=== PATIENT | female | born 1975 | race Caucasian/White ===

== ENCOUNTER 2016-11-01 12:09 | Emergency (ER) | payer MEDICAID ==
[~2016-11-01] VITALS: Ht 157.5 cm; Wt 89.0 kg
[~2016-11-01 12:09] MED LIST: CEPH250C PO; VIC PO
[2016-11-01 12:11] VITALS: Ht 157.5 cm; Wt 89.0 kg
[2016-11-01] MEDS ORDERED: KETOROLAC 30 MG INJ IM STA (13:53)
--- NOTE | 2016-11-01 14:29 | RADRPT ---
PROCEDURE: XR Left Shoulder CLINICAL INDICATION: Pain TECHNIQUE: AP internal and external rotation views and a Y-view were submitted. COMPARISON: None FINDINGS: Osseous structures: appear well mineralized and intact with no fracture or destructive process iden tified. Joint spaces: The glenohumeral joint appears unremarkable. The left AC joint appears unremarkable. Soft tissues: appear unremarkable. IMPRESSION: Unremarkable left shoulder. Physician Gerda Date Time Electronically viewed and signed by Lorena Franklin Physician on 11/01/2016 14:29 /
--- NOTE | 2016-11-01 14:30 | RADRPT ---
PROCEDURE: XR Chest. CLINICAL INDICATION: chest pain TECHNIQUE: Single frontal view of the chest was obtained COMPARISON: None FINDINGS: The heart and mediastinum are within normal limits. The lungs are clear. There is elevation of the right diaphragm. There is no pleural effusion or pneumothorax. RPTAT: AA IMPRESSION: No acute disease. .Wilfrid Quesada MD, MD Date Time Electronically viewed and signed by .Wilfrid Quesada MD, on 11/01/2016 14:30 .S/
[2016-11-01] MEDS ORDERED: NAPR-260 PO (15:07)
--- NOTE | 2016-11-01 15:32 | ERD ---
ER Documentation Chief Complaint Date/Time DATE: 11/01/16 TIME: 15:28 Chief Complaint left arm pain x 3 days HPI Patient is a 41-year-old female here with daughter who presents to the ED with left-sided chest wall pain left arm pain, left neck pain, left shoulder pain and back pain 1 year. 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 She states that the pain came on but she ignored it and continued working however is gotten worse specifically in the last 3 days. She denies chest pain or cough or shortness of breath. Denies headache or dizziness. Denies leg pain or leg swelling. She has not been taking ibuprofen and Motrin which has helped with her symptoms but she still has the pain. She denies any new onset trauma or falls. No other complaints. ROS All systems reviewed and are negative except as per history of present illness. Medications Home Meds Active Scripts Naproxen* (Naprosyn*) 500 Mg Tablet, 500 MG PO BID Y for PAIN AND/OR INFLAMMATION, #30 TAB Prov:SAMANTA SRIVASTAVA PA-C 11/01/16 Reported Medications Cephalexin* (Cephalexin*) 250 Mg Capsule, 500 MG PO BID 08/18/11 Acetaminophen/Hydrocodone (Vicodin) 1 Tab Tab, 1 TAB PO QID 08/18/11 Allergies Allergies: Coded Allergies: No Known Drug Allergies (Verified Allergy, 08/18/11) PMhx/Soc History of Surgery: No Anesthesia Reaction: No Hx Neurological Disorder: No Hx Respiratory Disorders: No Hx Cardiac Disorders: No Hx Psychiatric Problems: No Hx Miscellaneous Medical Probl: No Hx Alcohol Use: No Hx Substance Use: No Hx Tobacco Use: No Smoking Status: Never smoker FmHx Family History: No coronary disease, No diabetes, No other Physical Exam Vitals Vital Signs Date Time Temp Pulse Resp B/P Pulse Ox O2 Delivery O2 Flow Rate FiO2 11/01/16 12:11 98.1 89 18 135/64 99 Physical Exam GENERAL: Well-developed, well-nourished female. Appears in no acute distress. HEAD: Normocephalic, atraumatic. EYES: Pupils are equally reactive bilaterally. EOMs grossly intact. No conjunctival erythema. ENT: Moist mucous membranes. No uvula deviation. No kissing tonsils. No exudates. NECK: Supple. No lymphadenopathy or thyromegaly. No meningismus. negative kernig. negative brudinski. LUNG: Clear to auscultation bilaterally. No rhonchi, wheezing, rales or coarse breath sounds. HEART: Regular rate and rhythm. No murmurs, rubs or gallops. extreme tenderness to touch of left chest wall, left breast, left shoulder and left back. minimal rom. pulses intact. radius, ulnar, median nerve intact. no stepoffs or deformities.no swelling or erythema. BACK: No midline tenderness. Extremities: Equal pulses bilaterally. No peripheral clubbing, cyanosis or edema. No unilateral leg swelling. NEUROLOGIC: Alert and oriented. Moving all four extremities. 5/5 strength in all extremities. Normal speech. Steady gait. Cranial nerves II through XII intact. SKIN: Normal color. Warm and dry. No rashes or lesions. Capillary refill < 2 seconds Results 24 hrs Current Medications Medications (Trade) Dose Ordered Sig/Katelyn Route PRN Reason Start Time Stop Time Status Last Admin Dose Admin Ketorolac Tromethamine (Toradol) 30 mg ONCE STAT IM 11/01/16 13:53 11/01/16 13:55 DC 11/01/16 14:08 Procedures/MDM ER COURSE: I kept the patient and/or family informed of laboratory and diagnostic imaging results throughout the emergency room course. MEDICAL DECISION MAKING: This is a 41-year-old female who presents with shoulder, left-sided chest wall pain and back pain on and off 1 year. Vital signs were reviewed. Patient is afebrile. Patient is not hypoxic. She is not toxic or ill-appearing. Patient' s symptoms are chronic in etiology. Likely muscle strain versus sprain versus nerve injury. X-rays of by radiologist unremarkable for fracture dislocation. I have low suspicion for cardiac disease. Patient denies chest pain or shortness of breath. Patient has tenderness on examination. Symptoms have been going on for 1 year. No family history of heart disease. Low suspicion for dislocation, fracture, septic joint, compartment syndrome, osteomyelitis, cellulitis, avascular necrosis, neurological injury, vascular injury, tendon laceration. Low suspicion for ACS, PE, AAA, dissection, DVT DISCHARGE: At this time, patient is stable for discharge and outpatient management with no new complaints during the ER course. Patient was sent home with Yahaira and copy of imaging report and to follow-up with primary care provider. Patient will be discharged home with instructions to recheck for new or worsening symptoms such as fever, nausea, weakness, LOC and to follow up with primary care in the next 1-2 days. Patient was advised to return to the ER for any new or worsening symptoms. Plan was discussed and patient and/or family understands and agrees. Home instructions were given. Departure Diagnosis: Primary Impression: Chest wall pain Additional Impression: Shoulder pain, left Chronicity: chronic Qualified Code: M25.512 - Chronic left shoulder pain Condition: Stable Patient Instructions: Chest Wall Pain, Costochondritis, Chest Wall Strain, Shoulder Pain (Uncertain Cause) Additional Instructions: Llame al doctor MAANA y amanda gerardo LEE PARA DENTRO DE 1-2 GRACIA.Dgale a la secretaria que nosotros le instruimos hacer esta lee.Avise o llame si naidu condicin se empeora antes de la lee. Regresa aqui si peor o no mejor. SAMANTA SRIVASTAVA PA-C Nov 01, 2016 15:32
[2016-11-01 15:56] VITALS: BP 122/69; PULSE 99; RESP 17; TEMP 98.3
== END 2016-11-01 15:57 | disposition home or self-care (01) ==
LOC: FTE 12:09
DX: R07.89 Other chest pain (principal); M25.512 Pain in left shoulder
CPT/HCPCS: 71010; 73030; 96372; J1885; Z7502

== ENCOUNTER → 2018-09-03 | Emergency (ER) | payer MEDICAID ==
[~2018-09-03] VITALS: Ht 154.9 cm; Wt 100.0 kg
[~2018-09-03] MED LIST changes: +NAPR-985 PO; +ONDANSETRON 4 MG INJ IV STA; +SOD CHLORIDE 0.9% 1,000 ML IV STA
[2018-09-03 03:57] VITALS: Ht 154.9 cm; Wt 100.0 kg
--- NOTE | 2018-09-03 04:39 | ERD ---
ER Documentation Chief Complaint Chief Complaint FAMILY BROUGHT IN. ETOH AT HOME. INSULIN-DEPENDENT DIABETES HPI This is a 43-year-old woman with a history of diabetes brought in by friends and family members for drinking too much alcohol, it seems she was drinking tequila all night at her daughter's birthday libertarian. She was extremely lethargic and difficult to arouse, family member stated she felt dizzy and friends got worried and brought her here for evaluation. She had no episodes of vomiting, no complaints of chest pain or shortness of breath, no seizure activity. ROS All systems reviewed and are negative except as per history of present illness. Medications Home Meds Active Scripts Naproxen* (Naprosyn*) 500 Mg Tablet, 500 MG PO BID PRN for PAIN AND/OR INFLAMMATION, #30 TAB Prov:SAMANTA SRIVASTAVA PA-C 11/01/16 Reported Medications Cephalexin* (Cephalexin*) 250 Mg Capsule, 500 MG PO BID 08/18/11 Acetaminophen/Hydrocodone (Vicodin) 1 Tab Tab, 1 TAB PO QID 08/18/11 Allergies Allergies: Coded Allergies: No Known Drug Allergies (Verified Allergy, 08/18/11) PMhx/Soc Diabetes mellitus Medical and Surgical Hx: pt denies Surgical Hx History of Surgery: No Anesthesia Reaction: No Hx Neurological Disorder: No Hx Respiratory Disorders: No Hx Cardiac Disorders: No Hx Psychiatric Problems: No Hx Miscellaneous Medical Probl: No Hx Alcohol Use: Yes Hx Substance Use: No Hx Tobacco Use: No Smoking Status: Heavy tobacco smoker FmHx Family History: diabetes Physical Exam Vitals Vital Signs Date Temp Pulse Resp B/P (MAP) Pulse Ox O2 O2 Flow FiO2 Time Delivery Rate 09/03/18 100 110/56 100 Nasal 4.0 04:09 (74) Cannula 09/03/18 97.6 100 18 110/56 100 03:57 (74) Physical Exam GENERAL: Well-developed, well-nourished, well-hydrated, appears intoxicated, afebrile HEENT: Moist mucous membranes, pink conjunctiva, no cervical spine tenderness or step-off deformities, no goiter, no jaundice or icterus, extraocular movements intact without pain. No submandibular induration, and no pharyngeal erythema NEURO: Eyes closed, moving all extremities, no focal deficits or facial asymmetry, appears intoxicated, pupils equal round reactive to light CARDIAC: Tachycardic and regular, no murmurs rubs or gallops LUNGS: Clear bilaterally no wheezing crackles or stridor ABDOMEN: Soft nontender, no guarding, no rigidity, no rebound, no psoas sign no obturator sign. Normoactive bowel sounds SKIN: Warm and dry to touch, no abrasions, contusions, or hematomas, no lacerations, no ecchymosis, no target lesions, and without ulcers EXTREMITIES: No clubbing cyanosis or edema, calves are bilaterally symmetrical, no Homans sign, no popliteal cord sign. Distal pulses equal and bilateral PSYCH: Appears anxious, agitated Result Diagram: 09/03/18 0303 09/03/18 0303 Results 24 hrs Laboratory Tests Test 09/03/18 03:03 09/03/18 03:57 White Blood Count 8.9 10^3/ul Red Blood Count 5.25 10^6/ul Hemoglobin 15.2 g/dl Hematocrit 43.8 % Mean Corpuscular Volume 83.4 fl Mean Corpuscular Hemoglobin 29.0 pg Mean Corpuscular Hemoglobin Concent 34.7 g/dl Red Cell Distribution Width 11.9 % Platelet Count 393 10^3/UL Mean Platelet Volume 9.9 fl Immature Granulocytes % 0.200 % Neutrophils % 65.9 % Lymphocytes % 27.6 % Monocytes % 5.9 % Eosinophils % 0.2 % Basophils % 0.2 % Nucleated Red Blood Cells % 0.0 /100WBC Immature Granulocytes # 0.020 10^3/ul Neutrophils # 5.9 10^3/ul Lymphocytes # 2.5 10^3/ul Monocytes # 0.5 10^3/ul Eosinophils # 0.0 10^3/ul Basophils # 0.0 10^3/ul Nucleated Red Blood Cells # 0.0 10^3/ul Sodium Level 141 mmol/L Potassium Level 3.9 mmol/L Chloride Level 104 mmol/L Carbon Dioxide Level 20 mmol/L Anion Gap 17 Blood Urea Nitrogen 13 mg/dl Creatinine 0.33 mg/dl Est Glomerular Filtrat Rate mL/min > 60 mL/min Glucose Level 257 mg/dl Calcium Level 9.2 mg/dl Total Bilirubin 0.6 mg/dl Direct Bilirubin 0.00 mg/dl Indirect Bilirubin 0.6 mg/dl Aspartate Amino Transf (AST/SGOT) 38 IU/L Alanine Aminotransferase (ALT/SGPT) 37 IU/L Alkaline Phosphatase 113 IU/L Troponin I < 0.012 ng/ml Total Protein 8.6 g/dl Albumin 4.6 g/dl Globulin 4.00 g/dl Albumin/Globulin Ratio 1.15 Lipase 41 U/L Ethyl Alcohol Level 66.0 mg/dl Bedside Glucose 221 mg/dL Current Medications Medications Dose Sig/Katelyn Start Time Status Last (Trade) Ordered Route PRN Stop Time Admin Dose Reason Admin Sodium 1,000 ml @ Q1H STAT 09/03/18 DC 09/03/18 Chloride 1,000 mls/hr IV 03:57 04:09 09/03/18 04:56 Ondansetron 4 mg ONCE STAT 09/03/18 DC 09/03/18 HCl (Zofran IV 03:57 04:59 Inj) 09/03/18 03:58 Procedures/MDM IV line was established patient was placed on electronic device monitor rhythm strip revealed a narrow complex tachycardia at 100 bpm with upright P and T waves. Patient was afebrile One AP view of the chest performed, read by me reveals no acute infiltrates, normal mediastinum, sharp costophrenic and cardiac borders, no air under the diaphragm. Otherwise unremarkable chest x-ray. CT scan of the brain was negative for acute bleed mass or shift EKG performed, read by me revealed a sinus tachycardia at 101 bpm, normal axis, narrow QRS complex, no concerning ST elevations or depressions noted I administered 1 L normal saline IV x1 and Zofran 4 mg IV CBC and electrolytes are normal, liver function tests were normal, troponin was negative, ethanol level was low at 66 Patient's mental status improved and vital signs have been normal. She looks well and will be discharged to follow-up with PMD. Differential diagnoses considered, included but not limited to acute coronary syndrome, pulmonary embolism, aortic dissection, abdominal aortic aneurysm, sepsis, stroke, meningitis, encephalitis, pneumonia, appendicitis, cholecystitis, bowel obstruction, pyelonephritis, nephrolithiasis, cystitis, as well as metabolic, hematologic, and electrolyte abnormalities. As well as abscess, cellulitis, fractures, and dislocations. Patient feels much better at this time, and vital signs are normal, symptoms have improved. I did give strict instructions to return to the ED if symptoms continue or worsen, patient will otherwise follow-up with primary care physician. Patient understood instructions and agreed to plan. Disclaimer: Inadvertent spelling and grammatical errors are likely due to E HR/dictation software use and do not reflect on the overall quality of patient care. Also, please note that the electronic time recorded on this note does not necessarily reflect the actual time of the patient encounter. Departure Diagnosis: Primary Impression: Alcoholic intoxication Complication of substance-induced condition: uncomplicated Qualified Codes: F10.920 - Alcohol use, unspecified with intoxication, uncomplicated Additional Impression: Acute anxiety Condition: Good OSIEL BEGUM MD Sep 03, 2018 04:39
[2018-09-03 08:26] VITALS: BP 110/60; PULSE 88; RESP 20
== END | disposition home or self-care (01) ==
LOC: E/R 03:48
DX: F10.920 Alcohol use, unspecified with intoxication, uncomplicated (principal); F17.210 Nicotine dependence, cigarettes, uncomplicated; E11.9 Type 2 diabetes mellitus without complications; F41.9 Anxiety disorder, unspecified; Z79.4 Long term (current) use of insulin
CPT/HCPCS: 36415; 70450; 71045; 80053; 80307; 82962; 83690; 84484; 85025; 93005; 96374; J2405; J7030; Z7502